=== PATIENT | male | born 1995 | race Caucasian/White ===

== ENCOUNTER 2017-11-27 19:38 | Emergency (ER) | payer OTHER | END 2017-11-28 00:02 | disposition other institution (70) | LOC: ED 19:38 | DX: Z02.89 Encounter for other administrative examinations (principal) ==

== ENCOUNTER 2017-11-27 19:38 | Emergency (ER) | payer SELFPAY ==
[~2017-11-27] VITALS: Ht 180.3 cm; Wt 97.5 kg
[2017-11-27 19:51] VITALS: Ht 180.3 cm; Wt 97.5 kg
[2017-11-28 00:02] VITALS: BP 145/99
== END 2017-11-28 00:02 | disposition other institution (70) ==
LOC: ED 19:38
DX: S46.912A Strain of unspecified muscle, fascia and tendon at shoulder and upper arm level, left arm, initial encounter (principal); S46.911A Strain of unspecified muscle, fascia and tendon at shoulder and upper arm level, right arm, initial encounter; S29.012A Strain of muscle and tendon of back wall of thorax, initial encounter; V29.9XXA Motorcycle rider (driver) (passenger) injured in unspecified traffic accident, initial encounter; Y93.55 Activity, bike riding; Y99.8 Other external cause status; Y92.89 Other specified places as the place of occurrence of the external cause
CPT/HCPCS: 90715

== ENCOUNTER 2018-02-13 08:25 | Emergency (ER) | payer SELFPAY ==
[~2018-02-13] VITALS: Ht 180.3 cm; Wt 100.7 kg
[2018-02-13 08:31] VITALS: Ht 180.3 cm; Wt 100.7 kg
[2018-02-13 10:16] VITALS: BP 147/90
== END 2018-02-13 10:16 | disposition other institution (70) ==
LOC: ED 08:25
DX: Z02.89 Encounter for other administrative examinations (principal)
CPT/HCPCS: 83880; 90715

== ENCOUNTER 2019-01-19 19:48 | Emergency (ER) | payer MEDICAID ==
[~2019-01-19] VITALS: Ht 180.3 cm; Wt 92.1 kg
[2019-01-19 19:53] VITALS: Ht 180.3 cm; Wt 92.1 kg
[2019-01-19 23:48] VITALS: BP 123/74
== END 2019-01-19 23:48 | disposition home or self-care (01) ==
LOC: ED 19:48
DX: S80.811A Abrasion, right lower leg, initial encounter (principal); S50.312A Abrasion of left elbow, initial encounter; F31.9 Bipolar disorder, unspecified; V00.131A Fall from skateboard, initial encounter; Y93.51 Activity, roller skating (inline) and skateboarding; Y92.89 Other specified places as the place of occurrence of the external cause; Y99.8 Other external cause status
CPT/HCPCS: 90715

== ENCOUNTER 2019-10-06 15:35 | Emergency (ER) | payer MEDICAID ==
[~2019-10-06] VITALS: Ht 180.3 cm; Wt 102.1 kg
[2019-10-06 15:48] VITALS: BP 136/83; Ht 180.3 cm; Wt 102.1 kg
== END 2019-10-06 16:27 | disposition other institution (70) ==
LOC: ED 15:35
DX: S43.402A Unspecified sprain of left shoulder joint, initial encounter (principal); M25.532 Pain in left wrist; X58.XXXA Exposure to other specified factors, initial encounter; Y93.89 Activity, other specified; Y92.89 Other specified places as the place of occurrence of the external cause; Y99.8 Other external cause status

== ENCOUNTER 2019-10-06 15:35 | Emergency (ER) | payer OTHER | END 2019-10-06 16:27 | disposition other institution (70) | LOC: ED 15:35 | DX: Z02.89 Encounter for other administrative examinations (principal) ==

== ENCOUNTER 2020-01-31 15:26 | Emergency (ER) | payer MEDICAID ==
[~2020-01-31] VITALS: Ht 180.3 cm; Wt 86.2 kg
[2020-01-31 15:42] VITALS: Ht 180.3 cm; Wt 86.2 kg
[2020-01-31 15:50] VITALS: BP 119/71
== END 2020-01-31 15:50 | disposition other institution (70) ==
LOC: ED 15:26
DX: R07.89 Other chest pain (principal); R42 Dizziness and giddiness; R20.2 Paresthesia of skin; F17.210 Nicotine dependence, cigarettes, uncomplicated

== ENCOUNTER 2020-01-31 15:26 | Emergency (ER) | payer OTHER | END 2020-01-31 15:50 | disposition other institution (70) | LOC: ED 15:26 | DX: Z02.89 Encounter for other administrative examinations (principal) ==